=== PATIENT | male | born 1980 | race Caucasian/White ===

== ENCOUNTER 2017-06-02 07:52 | Emergency (ER) | payer MEDICAID, OTHER ==
[~2017-06-02] VITALS: Ht 182.9 cm; Wt 71.0 kg
[2017-06-02 07:55] VITALS: Ht 182.9 cm; Wt 71.0 kg
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
[2017-06-02] MEDS ORDERED: KETOROLAC 60 MG INJ IM STA (08:24)
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
[2017-06-02] MEDS ORDERED: ACET325T33 PO (09:25)
[2017-06-02] MEDS ORDERED: IBUP-1542 PO (09:25)
== END 2017-06-02 09:32 | disposition home or self-care (01) ==
LOC: FTE 07:52
DX: S06.0X0A Concussion without loss of consciousness, initial encounter (principal); V03.10XA Pedestrian on foot injured in collision with car, pick-up truck or van in traffic accident, initial encounter
CPT/HCPCS: 70450; 96372; 99285; J1885